=== PATIENT | male | born 1965 | race Caucasian/White ===

== ENCOUNTER → 2023-09-08 12:36 | Outpatient (REF) | payer OTHER, SELFPAY | LOC: HWRAD 12:36 | PROVIDERS: ATTENDING PHYSICIAN Family Medicine | DX: R51.9 Headache, unspecified (principal); H53.9 Unspecified visual disturbance | CPT/HCPCS: 70450 ==

== ENCOUNTER 2024-12-14 18:58 | Emergency (ER) | payer OTHER, SELFPAY ==
[2024-12-14] VITALS (9 sets, daily range): BP systolic 128–151; BP diastolic 69–94
--- NOTE | 2024-12-14 19:37 | ED.GENMED ---
History of Present Illness
General
Chief Complaint: Overdose Intentional
Source: patient
Exam Limitations: none
Time Seen by Provider: 12/14/24 19:20
Nursing documentation reviewed up to this point in time: agreed with
History of Present Illness
History of Present Illness:
Patient with history of bipolar disorder on Lamictal and Lexapro, presents to ED after intentional ingestion of multiple medications at home, around 1pm. Patient admits to having taken 2 tablets of hydrocodone, 15 tablets of Restoril (15mg), and 2
tablets of spouses blood pressure medication. Since then, patient reports feeling sleepy, but has no additional complaints. Denies headache. Denies dizziness. Denies chest pain. Denies abdominal pain. Denies vomiting or diarrhea. Denies
previous history of suicidal attempt. Patient reports receiving bad news at work. Specifically, patient was told last year that he was given option to either move to [place] or be terminated at work. Patient was given 1 year to decide, which ended
on December 10. Patient asked for exemption, but was denied of his request last Friday.
Past History
Past History
ED Past Medical History: None
Social History
Tobacco: Non-smoker
Review of Systems
Review of Systems
Allergies reviewed?: Yes
All Other Systems: ROS reviewed and negative except as documented in HPI and ROS
Constitutional: Reports no symptoms
Respiratory: Reports no symptoms; Denies trouble breathing
Cardiac: Reports no symptoms; Denies chest pain, palpitations or syncope
ABD/GI: Reports no symptoms; Denies abdominal pain or vomiting
Musculoskeletal: Reports no symptoms
Skin: Reports no symptoms
Neurological: Reports no symptoms
Phy Exam
Physical Exam
Physical Exam:
Physical Exam
General: no apparent distress, not acutely ill. afebrile
Head: nc/at. eomi
Neck: supple. no meningeal signs.
Heart: s1/s2 regular rate and rhythm
Lungs: no acute respiratory distress. clear bilaterally
Abdomen: normal bowel sounds. not tender.
Neuro: alert and oriented x 3. no focal neurological deficits
Skin: no rash
Psychiatric: well kept. interactive and cooperative
Extremities: no edema. no calf tenderness.
Course
Orders/Labs/Results
Orders:
Orders
12/14/24 19:13
Electrocardiogram (*1) Urgent
Reason for Study: Other
Other Reason for Exam: Potential overdose
Crisis Consult Urgent
Reason for Consult: +SI
EKG- Treatment ONCE
IV Insert/Care/Rem.- Treatment PRN
Pulse Ox/spot Check [RESP] Urgent
Quantity: 1
12/14/24 19:35
Acetaminophen Urgent
Alcohol Urgent
Complete Blood Count/With Diff Urgent
Comprehensive Metabolic Panel Urgent
Salicylate Urgent
12/14/24 19:40
Fentanyl, Urine Urgent
Urine Drug Abuse Screen Urgent
Date Specimen was Collected: 12/14/24
Time Specimen was Collected: 19:13
12/14/24 21:42
ED Special Safety Observation ONCE
Observation level: One to Two
Abnormal Lab Results
12/14/24 12/14/24
19:35 19:40
RBC 4.68 L 10^6/uL
(4.70-6.10)
Monocytes % 10.7 H %
(1.7-9.3)
Glucose 104 H mg/dl
(70-99)
Salicylates < 1.0 L mg/dl
(2.0-20.0)
Urine Opiates Screen Positive H
(Negative)
Acetaminophen < 10 L ug/ml
(10-30)
U Benzodiazepines Scrn Positive H
(Negative)
12/14/24 19:35
12/14/24 19:35
Vital Signs
Initial and Last Documented VS:
Initial Vital Signs
Temp Pulse Resp BP Pulse Ox
98.2 F 69 14 151/69 97
12/14/24 19:15 12/14/24 19:15 12/14/24 19:15 12/14/24 19:15 12/14/24 19:15
Last Documented Vital Signs
Temp Pulse Resp BP Pulse Ox
98.2 F 62 15 129/79 98
12/14/24 19:15 12/14/24 23:00 12/14/24 23:00 12/14/24 22:30 12/14/24 23:00
MDM/Problems Addressed
MDM/Problems Addressed:
Patient remains alert, awake, and oriented, and hemodynamically stable during extended course of observation ED. Patient is medically cleared.
Patient evaluated by [facility] insemination worker. Patient agreeable to inpatient psychiatric evaluation and treatment.
*Pulse Oximetry
SaO2: 97
Oxygen Mode of Delivery: Room air
Patient hypoxic: no
*EKG
Interpreted by ED Provider?: Yes
EKG Intrepretation Date: 12/14/24
Heart Rate: 71
Rate: normal
Rhythm: sinus
[place]: normal axis
Interval: normal interval
*Critical Care Note
Total Time (30-74mins, 75-104mins- exclusive of procedures): Not Applicable
ED Attending Note
-
Portions of this chart may have been created with voice recognition software.� Occasional wrong word or��sound alike� substitutions may have occurred due to the inherent limitations of voice recognition software.
Discharge Plan
Departure
Patient Disposition: Psych Facility
Date of Disposition: 12/14/24
Time of Disposition: 21:23
Discharge Problem:
Depression, Suicide attempt
Prescriptions:
No Action
multivitamin 1 EACH tablet
1 ea PO DAILY
atorvastatin 20 MG tablet
20 mg PO HS
lamotrigine [Lamictal] 200 MG tablet
200 mg PO DAILY
fexofenadine [Akila] 180 MG tablet
180 mg PO DAILY
temazepam 15 MG capsule
15 mg PO HS
ascorbic acid (vitamin C) [Vitamin C] 500 MG tablet
1,000 mg PO DAILY
lamotrigine 100 MG tablet
100 mg PO DAILY
escitalopram oxalate 10 MG tablet
10 mg PO HS
escitalopram oxalate 5 MG tablet
5 mg PO HS
omeprazole 20 MG tablet,delayed release (DR/EC)
20 mg PO DAILY
oxycodone 5 MG tablet
5 mg PO Q4HPRN PRN (Reason: breakthrough/severe pain) Qty: 5 0RF
Referrals:
Josep Tinajero Jr., MD [Family Provider, Pediatrics]
Interventions
Interventions:
*Risk Screen - Suicide Last Done: 12/14/24 19:15
*General Assessment Last Done: 12/14/24 19:15
*Nursing Disposition Last Done: 12/15/24 02:27
ED- Cardiac Assessment Last Done: 12/14/24 19:00
ED- Neurological Assessment Last Done: 12/14/24 19:00
ED-Psychological Assessment Last Done: 12/14/24 19:00
ED- Pulmonary Assessment Last Done: 12/14/24 19:00
Discharge Date and Time
Discharge Date/Time: 12/15/24 02:37
Print Language: MONGOLIAN
[2024-12-14 19:55] LABS: Hematocrit 41.1 % (39.0-52.0); Hemoglobin 13.9 g/dL (13.0-18.0); Mean Corp Hgb Conc. 33.8 g/dL (33.0-37.0); Mean Corpuscular Volume 87.8 fL (80.0-94.0); Nucleated Red Blood Cells % 0 % (-); Platelet Count 209 10^3/uL (130-400); Red Cell Dist. Width 13.0 % (11.5-14.5)
[2024-12-14 20:16] LABS: ALT (SGPT) 21 U/L (0-50); AST (SGOT) 25 U/L (17-59); Acetaminophen < 10 ug/ml (10-30); Albumin 4.3 g/dl (3.5-5.0); Alkaline Phosphatase 87 U/L (38-126); Blood Urea Nitrogen 18 mg/dl (9-20); Calcium 9.4 mg/dl (8.4-10.2); Carbon Dioxide 26 mmol/L (22-30); Chloride 107 mmol/L (98-107); Estimated Creatinine Clearance 114 ml/min; Glucose 104 mg/dl (70-99); Potassium 4.1 mmol/L (3.5-5.1); Salicylate < 1.0 mg/dl (2.0-20.0); Sodium 140 mmol/L (135-145); Total Protein 6.6 g/dl (6.3-8.2); eGFR > 60.00
== END 2024-12-15 02:37 ==
LOC: EMR 18:58
PROVIDERS: EMERGENCY PHYSICIAN Emergency Medicine
DX: F31.9 Bipolar disorder, unspecified (principal); T14.91XA Suicide attempt, initial encounter; X58.XXXA Exposure to other specified factors, initial encounter; Z79.899 Other long term (current) drug therapy
CPT/HCPCS: 99285; 80053; 80143; 80179; 80306; 80307; 82077; 85025; 93005